=== PATIENT | female | born 1965 | race African-American/Black ===

== ENCOUNTER 2023-03-23 09:21 | Outpatient (RCR) | payer BC, SELFPAY ==
[2023-03-23] VITALS (11 sets, daily range): BP systolic 135–175; BP diastolic 87–117; BMI 31.7
[2023-03-23] MEDS: BENADRYL 25 MG PO (10:07)
[2023-03-23] MEDS: NSS 250 IV (10:07)
[2023-03-23] MEDS: ZOFRAN 4 MG IV (10:08)
[2023-03-23] MEDS: REMICADE 250 ML IV (10:08)
[2023-03-23] MEDS: REMICADE 250 MG IV (10:08)
[2023-03-23 14:21] LABS: Urine Albumin 1+ (Neg - Trace); Urine Bilirubin Negative (Negative); Urine Character Clear (Clear); Urine Color Yellow; Urine Glucose 3+ (Negative); Urine Ketone Negative (Negative); Urine Leukocyte Negative (Negative); Urine Nitrite Negative (Negative); Urine Occult Blood Negative (Negative); Urine Specific Gravity 1.015 (<1.030); Urine Urobilinogen Negative (Neg - 1+)
[2023-03-23 15:14] LABS: Urine Amorphous Seen; Urine Mucus Few
[2023-03-23 15:15] LABS: Urine Red Blood Cell 0-2 /HPF (0-2); Urine White Cell 0-2 /HPF (0-5)
== END 2023-03-24 11:23 | disposition home or self-care (01) ==
LOC: OID 09:21
PROVIDERS: ATTENDING PHYSICIAN Internal Medicine Rheumatology; FAMILY PHYSICIAN Internal Medicine
DX: M06.9 Rheumatoid arthritis, unspecified (principal); M32.9 Systemic lupus erythematosus, unspecified; M05.79 Rheumatoid arthritis with rheumatoid factor of multiple sites without organ or systems involvement
CPT/HCPCS: 81003; 81015; 96361; 96375; 96413; 96415; J1745

== ENCOUNTER 2023-05-13 10:07 | Outpatient (RCR) | payer BC, SELFPAY ==
[2023-05-13] VITALS (15 sets, daily range): BP systolic 144–166; BP diastolic 92–111
[2023-05-13] MEDS: NSS 250 IV (10:34)
[2023-05-13] MEDS: BENADRYL 25 MG PO (10:34)
[2023-05-13] MEDS: REMICADE 250 ML IV (10:50)
[2023-05-13] MEDS: REMICADE 250 MG IV (10:50)
== END 2023-05-13 14:47 | disposition home or self-care (01) ==
LOC: OID 10:07
PROVIDERS: ATTENDING PHYSICIAN Internal Medicine Rheumatology; FAMILY PHYSICIAN Internal Medicine
DX: M06.9 Rheumatoid arthritis, unspecified (principal); M32.9 Systemic lupus erythematosus, unspecified; M05.79 Rheumatoid arthritis with rheumatoid factor of multiple sites without organ or systems involvement; E88.810 Metabolic syndrome
CPT/HCPCS: 96375; 96413; 96415; J1745

== ENCOUNTER 2023-06-10 10:06 | Outpatient (RCR) | payer BC, SELFPAY ==
[2023-06-10] VITALS (11 sets, daily range): BP systolic 141–160; BP diastolic 83–104
[2023-06-10] MEDS: NSS 250 IV (10:35)
[2023-06-10] MEDS: REMICADE 250 ML IV (10:35)
[2023-06-10] MEDS: REMICADE 250 MG IV (10:35)
[2023-06-10] MEDS: ZOFRAN 4 MG IV (12:46)
== END 2023-06-11 08:51 | disposition home or self-care (01) ==
LOC: OID 10:06
PROVIDERS: ATTENDING PHYSICIAN Internal Medicine Rheumatology; FAMILY PHYSICIAN Internal Medicine
DX: M06.9 Rheumatoid arthritis, unspecified (principal); M32.9 Systemic lupus erythematosus, unspecified; M05.79 Rheumatoid arthritis with rheumatoid factor of multiple sites without organ or systems involvement
CPT/HCPCS: 96374; 96413; 96415; J1745

== ENCOUNTER → 2023-07-03 08:19 | Outpatient (REF) | payer BC, SELFPAY ==
[2023-07-03 09:59] LABS: % Basophils 0.4 % (0-2); % Eosinophils 1.6 % (0-6); % Immature Granulocytes 0.3 % (0-0.5); % Lymphocytes 53.2 % (20.5-51.1); % Monocytes 3.5 % (1.7-9.3); Absolute Eosinophils 0.2 10^3/uL (0-0.7); Absolute Lymphocytes 4.9 10^3/uL (1.2-3.4); Absolute Monocytes 0.3 10^3/uL (0.1-0.6); Absolute Neutrophils 3.8 10^3/uL (1.4-6.5); Hematocrit 31.3 % (37.0-47.0); Hemoglobin 11.1 g/dL (12.0-16.0); Mean Corp Hgb Conc. 35.5 g/dL (33.0-37.0); Mean Corpuscular Hgb 28.9 pg (27.0-31.0); Mean Corpuscular Volume 81.5 fL (81.0-99.0); Mean Platelet Volume 9.6 fL (7.4-10.4); Nucleated Red Blood Cells % 0 %; Platelet Count 414 10^3/uL (130-400); Red Blood Cell Count 3.84 10^6/uL (4.20-5.40); Red Cell Dist. Width 13.8 % (11.5-14.5); White Blood Cell Count 9.3 10^3/uL (4.8-10.8)
[2023-07-03 10:21] LABS: ALT (SGPT) 16 U/L (0-35); AST (SGOT) 22 U/L (14-36); Albumin 4.1 g/dl (3.5-5.0); Alkaline Phosphatase 102 U/L (38-126); Blood Urea Nitrogen 17 mg/dl (7-17); Calcium 9.1 mg/dl (8.4-10.2); Carbon Dioxide 21 mmol/L (22-30); Chloride 106 mmol/L (98-107); Glucose 250 mg/dl (70-99); HDL Cholesterol 61 mg/dl; LDL Cholesterol, Calculated 171 mg/dl; Sodium 138 mmol/L (135-145); Total Bilirubin 0.8 mg/dl (0.2-1.3); Total Cholesterol 276 mg/dl (50-199); Triglyceride 222 mg/dl (10-149); Very Low Density Lipoprotein 44 mg/dl (0-30); eGFR > 60.00
[2023-07-03 10:27] LABS: C-Reactive Protein < 5.00 mg/L (0.0-10.00)
[2023-07-03 10:42] LABS: Vitamin D, 25-OH*** 29.4 ng/mL (30-80)
[2023-07-03 10:56] LABS: TSH Reflex To Free T4 1.94 uIU/ml (0.47-4.68)
[2023-07-03 10:58] LABS: Erythrocyte Sed Rate 48 mm/hour (0-20)
[2023-07-03 13:54] LABS: Glycohemoglobin (HgbA1c) 10.6 % (4.0-5.6)
[2023-07-03 16:08] LABS: Microalbumin, Random Urine > 57.0 mg/dl (0.6-1.7)
[2023-07-05 03:11] LABS: ANA, IgG Reflex to HEp-2 Detected (None Detected)
[2023-07-05 08:56] LABS: CCP Antibody IgG/IgA 8 Units (0-19)
[2023-07-06 06:36] LABS: ANA, HEp-2, IgG <1:80 (<1:80)
== END ==
LOC: REG 08:19
PROVIDERS: ATTENDING PHYSICIAN Internal Medicine Rheumatology; FAMILY PHYSICIAN Internal Medicine Endocrinology, Diabetes & Metabolism
DX: E55.9 Vitamin D deficiency, unspecified (principal); M05.79 Rheumatoid arthritis with rheumatoid factor of multiple sites without organ or systems involvement; M35.00 Sjogren syndrome, unspecified
CPT/HCPCS: 36415; 80053; 80061; 82043; 82306; 82570; 83036; 84443; 85025; 85652; 86038; 86140; 86200; 86430

== ENCOUNTER 2023-07-15 10:10 | Outpatient (RCR) | payer BC, SELFPAY ==
[2023-07-15] VITALS (11 sets, daily range): BP systolic 157–183; BP diastolic 93–123
[2023-07-15] MEDS: NSS 250 IV (10:35)
[2023-07-15] MEDS: REMICADE 250 MG IV (10:43)
[2023-07-15] MEDS: REMICADE 250 ML IV (10:43)
[2023-07-15] MEDS: ZOFRAN 4 MG IV (12:59)
== END 2023-07-17 23:59 | disposition home or self-care (01) ==
LOC: OID 10:10
PROVIDERS: ATTENDING PHYSICIAN Internal Medicine Rheumatology; FAMILY PHYSICIAN Internal Medicine
DX: M06.9 Rheumatoid arthritis, unspecified (principal); M32.9 Systemic lupus erythematosus, unspecified; M05.79 Rheumatoid arthritis with rheumatoid factor of multiple sites without organ or systems involvement
CPT/HCPCS: 96413; 96415; J1745

== ENCOUNTER 2023-09-01 08:10 | Outpatient (RCR) | payer BC, SELFPAY ==
[2023-09-01] VITALS (11 sets, daily range): BP systolic 140–172; BP diastolic 86–100
[2023-09-01] MEDS: NSS 250 IV (08:53)
[2023-09-01] MEDS: TYLENOL 650 MG PO (08:54)
[2023-09-01] MEDS: BENADRYL 25 MG PO (08:55)
[2023-09-01] MEDS: REMICADE 250 ML IV (09:21)
[2023-09-01] MEDS: REMICADE 250 MG IV (09:21)
[2023-09-01 10:19] LABS: ALT (SGPT) 15 U/L (0-35); AST (SGOT) 20 U/L (14-36); Albumin 4.2 g/dl (3.5-5.0); Alkaline Phosphatase 99 U/L (38-126); Direct Bilirubin 0.3 mg/dl (0.0-0.4); HDL Cholesterol 57 mg/dl; LDL Cholesterol, Calculated 158 mg/dl; Total Bilirubin 0.8 mg/dl (0.2-1.3); Total Cholesterol 250 mg/dl (50-199); Total Protein 7.9 g/dl (6.3-8.2); Triglyceride 175 mg/dl (10-149); Very Low Density Lipoprotein 35 mg/dl (0-30)
[2023-09-01 10:47] LABS: Glycohemoglobin (HgbA1c) 10.3 % (4.0-5.6)
[2023-09-01] MEDS: ZOFRAN 4 MG IV (11:38)
== END 2023-09-02 08:37 | disposition home or self-care (01) ==
LOC: OID 08:10
PROVIDERS: Internal Medicine Endocrinology, Diabetes & Metabolism; ATTENDING PHYSICIAN Internal Medicine Rheumatology; FAMILY PHYSICIAN Internal Medicine
DX: M06.9 Rheumatoid arthritis, unspecified (principal); M32.9 Systemic lupus erythematosus, unspecified; M05.79 Rheumatoid arthritis with rheumatoid factor of multiple sites without organ or systems involvement
CPT/HCPCS: 36415; 80061; 80076; 83036; 96365; 96366; 96375; J1745

== ENCOUNTER 2023-10-05 08:10 | Outpatient (RCR) | payer BC, SELFPAY ==
[2023-10-05] VITALS (11 sets, daily range): BP systolic 164–186; BP diastolic 96–118
[2023-10-05] MEDS: TYLENOL 650 MG PO (08:52)
[2023-10-05] MEDS: REMICADE 250 ML IV (08:53)
[2023-10-05] MEDS: BENADRYL 25 MG PO (08:53)
[2023-10-05] MEDS: REMICADE 250 MG IV (08:53)
== END 2023-10-17 23:59 | disposition home or self-care (01) ==
LOC: OID 08:10
PROVIDERS: ATTENDING PHYSICIAN Internal Medicine Rheumatology; FAMILY PHYSICIAN Internal Medicine
DX: M05.79 Rheumatoid arthritis with rheumatoid factor of multiple sites without organ or systems involvement (principal)
CPT/HCPCS: 96413; 96415; J1745

== ENCOUNTER 2023-11-10 08:05 | Outpatient (RCR) | payer BC, SELFPAY ==
[2023-11-10] VITALS (10 sets, daily range): BP systolic 146–165; BP diastolic 87–99
[2023-11-10] MEDS: REMICADE 250 ML IV (08:40)
[2023-11-10] MEDS: REMICADE 250 MG IV (08:40)
[2023-11-10] MEDS: ZOFRAN 4 MG IV (08:41)
[2023-11-10] MEDS: BENADRYL 25 MG PO (08:41)
== END 2023-11-10 15:47 | disposition home or self-care (01) ==
LOC: OID 08:05
PROVIDERS: ATTENDING PHYSICIAN Internal Medicine Rheumatology; FAMILY PHYSICIAN Internal Medicine
DX: M06.9 Rheumatoid arthritis, unspecified (principal); M05.79 Rheumatoid arthritis with rheumatoid factor of multiple sites without organ or systems involvement
CPT/HCPCS: 96375; 96413; 96415; J1745

== ENCOUNTER 2023-12-10 09:00 | Outpatient (RCR) | payer BC, SELFPAY ==
[2023-12-10] VITALS (10 sets, daily range): BP systolic 153–177; BP diastolic 83–107
[2023-12-10] MEDS: BENADRYL 25 MG PO (09:31)
[2023-12-10] MEDS: REMICADE 250 ML IV (09:32)
[2023-12-10] MEDS: NSS 250 IV (09:32)
[2023-12-10] MEDS: REMICADE 250 MG IV (09:32)
== END 2023-12-17 23:59 | disposition home or self-care (01) ==
LOC: OID 09:00
PROVIDERS: ATTENDING PHYSICIAN Internal Medicine Rheumatology; FAMILY PHYSICIAN Internal Medicine
DX: M05.79 Rheumatoid arthritis with rheumatoid factor of multiple sites without organ or systems involvement (principal); M06.9 Rheumatoid arthritis, unspecified; M35.00 Sjogren syndrome, unspecified
CPT/HCPCS: 96413; 96415; J1745

== ENCOUNTER → 2023-12-24 07:58 | Outpatient (REF) | payer BC, SELFPAY ==
[2023-12-24 09:49] LABS: Hematocrit 33.3 % (37.0-47.0); Hemoglobin 11.7 g/dL (12.0-16.0); Mean Corp Hgb Conc. 35.1 g/dL (33.0-37.0); Mean Corpuscular Hgb 29.3 pg (27.0-31.0); Mean Corpuscular Volume 83.5 fL (81.0-99.0); Mean Platelet Volume 9.4 fL (7.4-10.4); Platelet Count 465 10^3/uL (130-400); Red Blood Cell Count 3.99 10^6/uL (4.20-5.40); Red Cell Dist. Width 13.7 % (11.5-14.5); White Blood Cell Count 8.8 10^3/uL (4.8-10.8)
[2023-12-24 10:07] LABS: ALT (SGPT) 21 U/L (0-35); AST (SGOT) 22 U/L (14-36); Albumin 4.6 g/dl (3.5-5.0); Alkaline Phosphatase 82 U/L (38-126); Blood Urea Nitrogen 16 mg/dl (7-17); Calcium 9.4 mg/dl (8.4-10.2); Carbon Dioxide 23 mmol/L (22-30); Chloride 102 mmol/L (98-107); Direct Bilirubin 0.1 mg/dl (0.0-0.4); Glucose 233 mg/dl (70-99); HDL Cholesterol 61 mg/dl; LDL Cholesterol, Calculated 151 mg/dl; Potassium 4.3 mmol/L (3.5-5.1); Sodium 139 mmol/L (135-145); Total Bilirubin 0.8 mg/dl (0.2-1.3); Total Cholesterol 248 mg/dl (50-199); Total Protein 8.5 g/dl (6.3-8.2); Triglyceride 184 mg/dl (10-149); Very Low Density Lipoprotein 36 mg/dl (0-30); eGFR > 60.00
[2023-12-24 10:17] LABS: Vitamin D, 25-OH*** 28.7 ng/mL (30-80)
[2023-12-24 10:31] LABS: TSH Reflex To Free T4 1.56 uIU/ml (0.47-4.68)
[2023-12-24 11:05] LABS: Erythrocyte Sed Rate 56 mm/hour (0-20)
[2023-12-24 11:09] LABS: Microalbumin, Random Urine 32.3 mg/dl (0.6-1.7); Microalbumin/creatinine Ratio 147.1 mg/g
[2023-12-24 11:40] LABS: C-Reactive Protein < 5.00 mg/L (0.0-10.00)
[2023-12-24 12:11] LABS: Cortisol, Random 5.1 ug/dl
[2023-12-24 13:05] LABS: Glycohemoglobin (HgbA1c) 9.3 % (4.0-5.6)
[2023-12-24 13:18] LABS: % Basophils 0.5 % (0-2); % Eosinophils 2.5 % (0-6); % Immature Granulocytes 0.2 % (0-0.5); % Lymphocytes 60.3 % (20.5-51.1); % Monocytes 3.9 % (1.7-9.3); % Neutrophils 32.6 % (42.2-75.2); Absolute Eosinophils 0.2 10^3/uL (0-0.7); Absolute Lymphocytes 5.3 10^3/uL (1.2-3.4); Absolute Monocytes 0.3 10^3/uL (0.1-0.6); Absolute Neutrophils 2.9 10^3/uL (1.4-6.5); Nucleated Red Blood Cells % 0 %
[2023-12-25 11:58] LABS: Rheumatoid Agglutinin Less Than 10 IU (<10 IU)
[2023-12-26 01:58] LABS: ANA, IgG Reflex to HEp-2 Detected (None Detected)
[2023-12-26 02:28] LABS: CCP Antibody IgG/IgA 7 Units (0-19)
== END ==
LOC: REG 07:58
PROVIDERS: ATTENDING PHYSICIAN Specialist; FAMILY PHYSICIAN Internal Medicine; OTHER PHYSICIAN Internal Medicine Endocrinology, Diabetes & Metabolism; OTHER PHYSICIAN Internal Medicine Rheumatology
DX: I10 Essential (primary) hypertension (principal); R80.9 Proteinuria, unspecified; E11.65 Type 2 diabetes mellitus with hyperglycemia; Z79.4 Long term (current) use of insulin
CPT/HCPCS: 36415; 80053; 80061; 82043; 82088; 82248; 82306; 82533; 82570; 83036; 83835; 84244; 84443; 85025; 85652; 86038; 86140; 86200; 86430

== ENCOUNTER 2024-01-11 09:23 | Outpatient (RCR) | payer BC, SELFPAY ==
[2024-01-11] VITALS (11 sets, daily range): BP systolic 122–165; BP diastolic 78–102
[2024-01-11] MEDS: BENADRYL 25 MG PO (09:51)
[2024-01-11] MEDS: NSS 250 IV (09:52)
[2024-01-11] MEDS: ZOFRAN 4 MG IV (10:10)
[2024-01-11] MEDS: REMICADE 250 ML IV (10:14)
[2024-01-11] MEDS: REMICADE 250 MG IV (10:14)
== END 2024-01-12 08:41 | disposition home or self-care (01) ==
LOC: OID 09:23
PROVIDERS: ATTENDING PHYSICIAN Internal Medicine Rheumatology; FAMILY PHYSICIAN Internal Medicine
DX: M05.79 Rheumatoid arthritis with rheumatoid factor of multiple sites without organ or systems involvement (principal); M06.9 Rheumatoid arthritis, unspecified; M35.00 Sjogren syndrome, unspecified
CPT/HCPCS: 96375; 96413; 96415; J1745

== ENCOUNTER → 2024-01-19 06:21 | Outpatient (REF) | payer BC, SELFPAY ==
[2024-01-19 08:20] LABS: Urine Protein 146 mg/dl
[2024-01-19 08:35] LABS: Hematocrit 31.4 % (37.0-47.0); Hemoglobin 11.2 g/dL (12.0-16.0)
[2024-01-19 08:40] LABS: Albumin 4.4 g/dl (3.5-5.0); Blood Urea Nitrogen 18 mg/dl (7-17); Calcium 9.1 mg/dl (8.4-10.2); Carbon Dioxide 22 mmol/L (22-30); Chloride 105 mmol/L (98-107); Glucose 260 mg/dl (70-99); Phosphorus 3.1 mg/dl (2.5-4.5); Potassium 4.6 mmol/L (3.5-5.1); Sodium 142 mmol/L (135-145); eGFR > 60.00
[2024-01-20 10:18] LABS: Intact PTH 81.3 pg/ml (13.6-85.8)
== END ==
LOC: REG 06:21
PROVIDERS: ATTENDING PHYSICIAN Specialist
DX: I10 Essential (primary) hypertension (principal); N17.9 Acute kidney failure, unspecified; R80.8 Other proteinuria; R80.9 Proteinuria, unspecified; E21.5 Disorder of parathyroid gland, unspecified
CPT/HCPCS: 36415; 80069; 82570; 83970; 84156; 85014; 85018

== ENCOUNTER 2024-02-12 07:44 | Outpatient (RCR) | payer BC, SELFPAY ==
[2024-02-12] VITALS (9 sets, daily range): BP systolic 149–185; BP diastolic 96–131
[2024-02-12] MEDS: NSS 250 IV (08:12)
[2024-02-12] MEDS: REMICADE 250 ML IV (08:18)
[2024-02-12] MEDS: REMICADE 250 MG IV (08:18)
--- NOTE | 2024-02-12 10:37 | PTCARENOTE ---
0900: pt's pressure 140-150's over 90's, during initial start of treatment, pt stated she did take all of her medications this morning. offers no complaints.
0915: pt's pump alarming, upon entering room, pt was visibly upset and crying, bp: 180/131, hr 104; when asked what was wrong, pt stated 'My brother just ......muscle relaxers.' emotional support given and pt stated she wanted to stay to
receive the rest of her infusion.
== END 2024-02-16 15:45 | disposition home or self-care (01) ==
LOC: OID 07:44
PROVIDERS: ATTENDING PHYSICIAN Internal Medicine Rheumatology
DX: M05.79 Rheumatoid arthritis with rheumatoid factor of multiple sites without organ or systems involvement (principal); M06.9 Rheumatoid arthritis, unspecified; M35.00 Sjogren syndrome, unspecified; E88.810 Metabolic syndrome; E55.9 Vitamin D deficiency, unspecified
CPT/HCPCS: 96413; 96415; J1745

== ENCOUNTER 2024-03-17 10:52 | Outpatient (RCR) | payer BC, SELFPAY ==
[2024-03-17] VITALS (11 sets, daily range): BP systolic 146–169; BP diastolic 88–109
[2024-03-17] MEDS: NSS 250 IV (11:16)
[2024-03-17] MEDS: REMICADE 250 ML IV (11:17)
[2024-03-17] MEDS: REMICADE 250 MG IV (11:17)
== END 2024-03-18 11:18 | disposition home or self-care (01) ==
LOC: OID 10:52
PROVIDERS: ATTENDING PHYSICIAN Internal Medicine Rheumatology
DX: M05.79 Rheumatoid arthritis with rheumatoid factor of multiple sites without organ or systems involvement (principal); M06.9 Rheumatoid arthritis, unspecified; M35.00 Sjogren syndrome, unspecified; E88.810 Metabolic syndrome; E55.9 Vitamin D deficiency, unspecified
CPT/HCPCS: 96413; 96415; J1745

== ENCOUNTER 2024-04-14 07:47 | Outpatient (RCR) | payer BC, SELFPAY ==
[2024-04-14] VITALS (11 sets, daily range): BP systolic 135–166; BP diastolic 82–94
[2024-04-14] MEDS: REMICADE 250 ML IV (08:19)
[2024-04-14] MEDS: NSS 250 IV (08:19)
[2024-04-14] MEDS: REMICADE 250 MG IV (08:19)
[2024-04-14 08:31] LABS: % Basophils 0.4 % (0-2); % Eosinophils 1.9 % (0-6); % Immature Granulocytes 0.4 % (0-0.5); % Lymphocytes 56.7 % (20.5-51.1); % Monocytes 3.8 % (1.7-9.3); % Neutrophils 36.8 % (42.2-75.2); Absolute Eosinophils 0.2 10^3/uL (0-0.7); Absolute Lymphocytes 4.8 10^3/uL (1.2-3.4); Absolute Monocytes 0.3 10^3/uL (0.1-0.6); Absolute Neutrophils 3.1 10^3/uL (1.4-6.5); Hematocrit 35.4 % (37.0-47.0); Hemoglobin 12.1 g/dL (12.0-16.0); Mean Corp Hgb Conc. 34.2 g/dL (33.0-37.0); Mean Corpuscular Hgb 28.9 pg (27.0-31.0); Mean Corpuscular Volume 84.5 fL (81.0-99.0); Mean Platelet Volume 8.7 fL (7.4-10.4); Nucleated Red Blood Cells % 0 %; Platelet Count 409 10^3/uL (130-400); Red Blood Cell Count 4.19 10^6/uL (4.20-5.40); Red Cell Dist. Width 13.8 % (11.5-14.5); White Blood Cell Count 8.5 10^3/uL (4.8-10.8)
[2024-04-14 08:43] LABS: ALT (SGPT) 21 U/L (0-35); AST (SGOT) 22 U/L (14-36); Albumin 4.4 g/dl (3.5-5.0); Alkaline Phosphatase 96 U/L (38-126); Blood Urea Nitrogen 18 mg/dl (7-17); Calcium 9.8 mg/dl (8.4-10.2); Carbon Dioxide 23 mmol/L (22-30); Chloride 106 mmol/L (98-107); Glucose 190 mg/dl (70-99); Potassium 4.4 mmol/L (3.5-5.1); Sodium 140 mmol/L (135-145); Total Bilirubin 0.7 mg/dl (0.2-1.3); Total Protein 8.6 g/dl (6.3-8.2); eGFR > 60.00
== END 2024-04-15 09:03 | disposition home or self-care (01) ==
LOC: OID 07:47
PROVIDERS: ATTENDING PHYSICIAN Internal Medicine Rheumatology
DX: M05.79 Rheumatoid arthritis with rheumatoid factor of multiple sites without organ or systems involvement (principal); M06.9 Rheumatoid arthritis, unspecified; M35.00 Sjogren syndrome, unspecified; E88.810 Metabolic syndrome; E55.9 Vitamin D deficiency, unspecified
CPT/HCPCS: 80053; 85025; 96413; 96415; J1745

== ENCOUNTER 2024-05-20 08:16 | Outpatient (RCR) | payer BC, SELFPAY ==
[2024-05-20] VITALS (10 sets, daily range): BP systolic 133–152; BP diastolic 80–94
[2024-05-20] MEDS: REMICADE 250 ML IV (09:40)
[2024-05-20] MEDS: NSS 250 IV (09:40)
[2024-05-20] MEDS: REMICADE 250 MG IV (09:40)
== END 2024-05-23 09:16 | disposition home or self-care (01) ==
LOC: OID 08:16
PROVIDERS: ATTENDING PHYSICIAN Internal Medicine Rheumatology; FAMILY PHYSICIAN Family Medicine
DX: M05.79 Rheumatoid arthritis with rheumatoid factor of multiple sites without organ or systems involvement (principal); M06.9 Rheumatoid arthritis, unspecified; M35.00 Sjogren syndrome, unspecified; E88.810 Metabolic syndrome; E55.9 Vitamin D deficiency, unspecified
CPT/HCPCS: 96413; 96415; J1745

== ENCOUNTER 2024-06-30 07:31 | Outpatient (RCR) | payer BC, SELFPAY ==
[2024-06-30] VITALS (12 sets, daily range): BP systolic 143–165; BP diastolic 82–95
[2024-06-30] MEDS: NSS 250 IV (08:21)
[2024-06-30] MEDS: REMICADE 250 ML IV (08:22)
[2024-06-30] MEDS: REMICADE 250 MG IV (08:22)
== END 2024-07-01 10:52 | disposition home or self-care (01) ==
LOC: OID 07:31
PROVIDERS: ATTENDING PHYSICIAN Internal Medicine Rheumatology; FAMILY PHYSICIAN Family Medicine
DX: M05.79 Rheumatoid arthritis with rheumatoid factor of multiple sites without organ or systems involvement (principal); M06.9 Rheumatoid arthritis, unspecified; M35.00 Sjogren syndrome, unspecified; E88.810 Metabolic syndrome; M32.9 Systemic lupus erythematosus, unspecified; E55.9 Vitamin D deficiency, unspecified
CPT/HCPCS: 96413; 96415; J1745

== ENCOUNTER 2024-08-10 08:36 | Outpatient (RCR) | payer BC, SELFPAY ==
[2024-08-10] VITALS (11 sets, daily range): BP systolic 145–158; BP diastolic 86–99
[2024-08-10] MEDS: NSS 250 IV (09:05)
[2024-08-10] MEDS: REMICADE 250 ML IV (09:20)
[2024-08-10] MEDS: REMICADE 250 MG IV (09:20)
== END 2024-08-11 08:19 | disposition home or self-care (01) ==
LOC: OID 08:36
PROVIDERS: ATTENDING PHYSICIAN Internal Medicine Rheumatology; FAMILY PHYSICIAN Family Medicine
DX: M05.79 Rheumatoid arthritis with rheumatoid factor of multiple sites without organ or systems involvement (principal); M06.9 Rheumatoid arthritis, unspecified; M35.00 Sjogren syndrome, unspecified; E88.810 Metabolic syndrome; E55.9 Vitamin D deficiency, unspecified
CPT/HCPCS: 96365; 96366; J1745

== ENCOUNTER 2024-09-22 07:48 | Outpatient (RCR) | payer BC, SELFPAY ==
[2024-09-22] VITALS (10 sets, daily range): BP systolic 140–169; BP diastolic 74–102
[2024-09-22 08:11] LABS: Hematocrit 36.1 % (37.0-47.0); Hemoglobin 12.5 g/dL (12.0-16.0); Mean Corp Hgb Conc. 34.6 g/dL (33.0-37.0); Mean Corpuscular Volume 85.7 fL (81.0-99.0); Platelet Count 441 10^3/uL (130-400); Red Cell Dist. Width 13.9 % (11.5-14.5)
[2024-09-22] MEDS: BENADRYL 50 MG PO (08:35)
[2024-09-22] MEDS: NSS 250 IV (08:36)
[2024-09-22] MEDS: REMICADE 250 MG IV (08:36)
[2024-09-22] MEDS: REMICADE 250 ML IV (08:36)
[2024-09-22 10:08] LABS: ALT (SGPT) 19 U/L (0-35); AST (SGOT) 23 U/L (14-36); Albumin 4.1 g/dl (3.5-5.0); Alkaline Phosphatase 121 U/L (38-126); Blood Urea Nitrogen 20 mg/dl (7-17); Calcium 9.1 mg/dl (8.4-10.2); Carbon Dioxide 23 mmol/L (22-30); Chloride 105 mmol/L (98-107); Glucose 325 mg/dl (70-99); Potassium 4.7 mmol/L (3.5-5.1); Sodium 135 mmol/L (135-145); Total Protein 8.2 g/dl (6.3-8.2); eGFR > 60.00
== END 2024-09-22 15:47 | disposition home or self-care (01) ==
LOC: OID 07:48
PROVIDERS: ATTENDING PHYSICIAN Internal Medicine Rheumatology
DX: M35.00 Sjogren syndrome, unspecified (principal); M32.9 Systemic lupus erythematosus, unspecified; E88.810 Metabolic syndrome; E55.9 Vitamin D deficiency, unspecified; Z79.899 Other long term (current) drug therapy
CPT/HCPCS: 36415; 80053; 85025; 96413; 96415; J1745

== ENCOUNTER → 2024-10-05 06:33 | Outpatient (REF) | payer BC, SELFPAY ==
[2024-10-05 08:55] LABS: Microalb - Urine Creatinine 206.100 mg/dl
[2024-10-05 10:49] LABS: Microalbumin, Random Urine > 57.0 mg/dl (0.6-1.7)
== END ==
LOC: REG 06:33
PROVIDERS: ATTENDING PHYSICIAN Specialist; FAMILY PHYSICIAN Internal Medicine
DX: R80.9 Proteinuria, unspecified (principal)
CPT/HCPCS: 82043; 82570; 84156

== ENCOUNTER 2024-10-19 07:56 | Outpatient (RCR) | payer BC, SELFPAY ==
[2024-10-19] VITALS (11 sets, daily range): BP systolic 142–178; BP diastolic 85–108
[2024-10-19] MEDS: REMICADE 250 ML IV (08:39)
[2024-10-19] MEDS: NSS 250 IV (08:39)
[2024-10-19] MEDS: REMICADE 250 MG IV (08:39)
== END 2024-10-20 15:33 | disposition home or self-care (01) ==
LOC: OID 07:56
PROVIDERS: ATTENDING PHYSICIAN Internal Medicine Rheumatology
DX: M05.79 Rheumatoid arthritis with rheumatoid factor of multiple sites without organ or systems involvement (principal); M35.00 Sjogren syndrome, unspecified; M32.9 Systemic lupus erythematosus, unspecified; E88.810 Metabolic syndrome; E55.9 Vitamin D deficiency, unspecified
CPT/HCPCS: 96413; 96415; J1745

== ENCOUNTER 2024-11-23 08:24 | Outpatient (RCR) | payer BC, SELFPAY ==
[2024-11-23] VITALS (10 sets, daily range): BP systolic 128–142; BP diastolic 77–87
[2024-11-23] MEDS: NSS 250 IV (08:53)
[2024-11-23] MEDS: ZOFRAN 4 MG IV (09:07)
[2024-11-23] MEDS: REMICADE 250 ML IV (09:07)
[2024-11-23] MEDS: REMICADE 250 MG IV (09:07)
== END 2024-11-24 12:33 | disposition home or self-care (01) ==
LOC: OID 08:24
PROVIDERS: ATTENDING PHYSICIAN Internal Medicine Rheumatology
DX: M05.79 Rheumatoid arthritis with rheumatoid factor of multiple sites without organ or systems involvement (principal); M35.00 Sjogren syndrome, unspecified; M32.9 Systemic lupus erythematosus, unspecified; E88.810 Metabolic syndrome; E55.9 Vitamin D deficiency, unspecified; Z51.81 Encounter for therapeutic drug level monitoring; Z79.899 Other long term (current) drug therapy
CPT/HCPCS: 96365; 96374; 96375; J1745

== ENCOUNTER 2025-01-05 08:25 | Outpatient (RCR) | payer BC, SELFPAY ==
[2025-01-05] VITALS (11 sets, daily range): BP systolic 125–140; BP diastolic 73–92
[2025-01-05] MEDS: NSS 250 IV (08:57)
[2025-01-05] MEDS: REMICADE 250 ML IV (08:58)
[2025-01-05] MEDS: REMICADE 250 MG IV (08:58)
[2025-01-05 09:34] LABS: Hematocrit 34.8 % (37.0-47.0); Hemoglobin 11.7 g/dL (12.0-16.0); Mean Corp Hgb Conc. 33.6 g/dL (33.0-37.0); Mean Corpuscular Volume 86.4 fL (81.0-99.0); Nucleated Red Blood Cells % 0 %; Platelet Count 450 10^3/uL (130-400); Red Cell Dist. Width 13.9 % (11.5-14.5)
[2025-01-05 09:45] LABS: ALT (SGPT) 18 U/L (0-35); AST (SGOT) 20 U/L (14-36); Albumin 4.3 g/dl (3.5-5.0); Alkaline Phosphatase 142 U/L (38-126); Blood Urea Nitrogen 22 mg/dl (7-17); Calcium 9.2 mg/dl (8.4-10.2); Carbon Dioxide 23 mmol/L (22-30); Chloride 101 mmol/L (98-107); Glucose 430 mg/dl (70-99); Potassium 4.7 mmol/L (3.5-5.1); Sodium 132 mmol/L (135-145); Total Protein 8.7 g/dl (6.3-8.2); eGFR > 60.00
== END 2025-01-06 09:50 | disposition home or self-care (01) ==
LOC: OID 08:25
PROVIDERS: ATTENDING PHYSICIAN Internal Medicine Rheumatology
DX: M05.79 Rheumatoid arthritis with rheumatoid factor of multiple sites without organ or systems involvement (principal); M35.00 Sjogren syndrome, unspecified; M32.9 Systemic lupus erythematosus, unspecified; E55.9 Vitamin D deficiency, unspecified; Z79.899 Other long term (current) drug therapy
CPT/HCPCS: 80053; 85025; 96413; 96415; J1745

== ENCOUNTER → 2025-01-23 06:51 | Outpatient (REF) | payer BC, SELFPAY ==
[2025-01-23 07:36] LABS: Urine Character Clear (Clear)
[2025-01-23 08:00] LABS: Urine Squamous Cell >30 /LPF (Few)
[2025-01-23 08:01] LABS: Urine Red Blood Cell 0-2 /HPF (0-2)
[2025-01-23 08:04] LABS: Albumin 4.3 g/dl (3.5-5.0); Blood Urea Nitrogen 18 mg/dl (7-17); Calcium 9.3 mg/dl (8.4-10.2); Carbon Dioxide 21 mmol/L (22-30); Chloride 103 mmol/L (98-107); Glucose 491 mg/dl (70-99); Potassium 4.7 mmol/L (3.5-5.1); Sodium 133 mmol/L (135-145); eGFR > 60.00
== END ==
LOC: REG 06:51
PROVIDERS: ATTENDING PHYSICIAN Specialist; FAMILY PHYSICIAN Internal Medicine
DX: I10 Essential (primary) hypertension (principal); E78.5 Hyperlipidemia, unspecified; N17.9 Acute kidney failure, unspecified; D64.9 Anemia, unspecified
CPT/HCPCS: 80069; 81003; 81015

== ENCOUNTER 2025-02-02 08:32 | Outpatient (RCR) | payer BC, SELFPAY ==
[2025-02-02] VITALS (10 sets, daily range): BP systolic 126–143; BP diastolic 81–92
[2025-02-02] MEDS: NSS 250 IV (09:06)
[2025-02-02] MEDS: REMICADE 250 ML IV (09:07)
[2025-02-02] MEDS: REMICADE 250 MG IV (09:07)
== END 2025-02-03 09:32 | disposition home or self-care (01) ==
LOC: OID 08:32
PROVIDERS: ATTENDING PHYSICIAN Internal Medicine Rheumatology
DX: M35.00 Sjogren syndrome, unspecified (principal); M32.9 Systemic lupus erythematosus, unspecified; E88.10 Lipodystrophy, unspecified; E55.9 Vitamin D deficiency, unspecified
CPT/HCPCS: 96413; 96415; J1745